=== PATIENT | male | born 1945 | race Caucasian/White ===

== ENCOUNTER → 2020-08-23 13:13 | Outpatient (BNVA) | payer MEDICARE, SELFPAY | PROVIDERS: PCP Physician Assistant Medical; Visit Provider Nurse Practitioner Gerontology | DX: E11.65 Type 2 diabetes mellitus with hyperglycemia (principal); E11.22 Type 2 diabetes mellitus with diabetic chronic kidney disease; I13.2 Hypertensive heart and chronic kidney disease with heart failure and with stage 5 chronic kidney disease, or end stage renal disease; N18.6 End stage renal disease; I50.9 Heart failure, unspecified; Z99.2 Dependence on renal dialysis; E78.5 Hyperlipidemia, unspecified; Z79.4 Long term (current) use of insulin | CPT/HCPCS: 82947; 99214 ==

== ENCOUNTER 2020-08-30 09:51 | Outpatient (REF) | payer MEDICARE, OTHER, SELFPAY ==
[2020-08-30 11:36] LABS: Cholesterol 98 mg/dL; HDL Cholesterol 47 mg/dL; LDL Cholesterol Calculated 38 mg/dl; Triglycerides 66 mg/dL
[2020-08-31 16:47] LABS: LDL Cholesterol Direct 31 mg/dL (<100)
[2020-09-04 19:46] LABS: Fructosamine 305 umol/L (205-285)
== END 2020-08-30 09:52 | disposition home or self-care (01) ==
LOC: HO.LAB 09:51
PROVIDERS: PCP Physician Assistant Medical; Visit Provider Nurse Practitioner Gerontology
DX: E11.65 Type 2 diabetes mellitus with hyperglycemia (principal)
CPT/HCPCS: 80061; 82985; 83721

== ENCOUNTER → 2020-10-11 12:27 | Outpatient (BNVA) | payer MEDICARE, SELFPAY | PROVIDERS: PCP Physician Assistant Medical; Referring Provider Physician Assistant Medical; Visit Provider Internal Medicine | DX: I25.10 Atherosclerotic heart disease of native coronary artery without angina pectoris (principal); I50.32 Chronic diastolic (congestive) heart failure; I13.2 Hypertensive heart and chronic kidney disease with heart failure and with stage 5 chronic kidney disease, or end stage renal disease; E11.22 Type 2 diabetes mellitus with diabetic chronic kidney disease; N18.6 End stage renal disease; Z99.2 Dependence on renal dialysis | CPT/HCPCS: 99212 ==

== ENCOUNTER 2021-02-23 09:10 | Outpatient (REF) | payer MEDICARE, SELFPAY ==
--- NOTE | ~2021-02-23 | XR_ITS ---
EXAMINATION: BILATERAL HAND X-RAY CLINICAL INFORMATION: Pain COMPARISON: None TECHNIQUE: 3 views of both hands FINDINGS: Left: There are flexion contractures of the fingers, particularly the fifth finger. Bone alignment is otherwise normal. No fracture or dislocation is seen. There is mild arthritis at the first FDC joint. Joint spaces are otherwise normal. There is soft tissue arterial calcification. Right: There are flexion contractures of the fingers, particularly the fifth finger. Bone alignment is otherwise normal. No fracture or dislocation is seen. There is mild arthritis at the first FDC joint. Joint spaces are otherwise normal. There is soft tissue arterial calcification. XR/XR hand LT min 3V IMPRESSION: Flexion contractures of the fingers particularly the bilateral fifth finger. Mild arthritis at the first FDC joints. Soft tissue arterial calcification.
--- NOTE | ~2021-02-23 | XR_ITS ---
EXAMINATION: BILATERAL HAND X-RAY CLINICAL INFORMATION: Pain COMPARISON: None TECHNIQUE: 3 views of both hands FINDINGS: Left: There are flexion contractures of the fingers, particularly the fifth finger. Bone alignment is otherwise normal. No fracture or dislocation is seen. There is mild arthritis at the first PRISON joint. Joint spaces are otherwise normal. There is soft tissue arterial calcification. Right: There are flexion contractures of the fingers, particularly the fifth finger. Bone alignment is otherwise normal. No fracture or dislocation is seen. There is mild arthritis at the first PRISON joint. Joint spaces are otherwise normal. There is soft tissue arterial calcification. XR/XR hand RT min 3V IMPRESSION: Flexion contractures of the fingers particularly the bilateral fifth finger. Mild arthritis at the first PRISON joints. Soft tissue arterial calcification.
== END 2021-02-23 09:11 | disposition home or self-care (01) ==
LOC: HO.HOSX 09:10
PROVIDERS: PCP Physician Assistant Medical; Visit Provider Nurse Practitioner Gerontology
DX: M79.641 Pain in right hand (principal); M79.642 Pain in left hand; M72.0 Palmar fascial fibromatosis [Dupuytren]; G56.23 Lesion of ulnar nerve, bilateral upper limbs; I12.0 Hypertensive chronic kidney disease with stage 5 chronic kidney disease or end stage renal disease; E11.65 Type 2 diabetes mellitus with hyperglycemia; E11.22 Type 2 diabetes mellitus with diabetic chronic kidney disease; N18.6 End stage renal disease; E78.5 Hyperlipidemia, unspecified; Z99.2 Dependence on renal dialysis; Z79.4 Long term (current) use of insulin
CPT/HCPCS: 73130; 82947; 99202; 99212

== ENCOUNTER → 2021-03-18 09:09 | Day surgery (SDC) | payer OTHER, SELFPAY ==
--- NOTE | 2021-03-17 10:02 | P.CONAN_ITS ---
HPI - Anesthesia Eval Consult details Narrative: 75yo M for Right Partial Dupuytrens Contracture Release Fascietomy, Ring finger ESRD with HD PMFSH Active Problems Active Problems: All Active Problems (Updated 02/23/21 @ 16:17 by Jenae Hanson MD) Dupuytren's contracture of right hand (Acute) Dupuytren's contracture of left hand (Acute) Cubital tunnel syndrome on left (Acute) Cubital tunnel syndrome on right (Acute) Heart block (Acute) Type 2 diabetes mellitus with unspecified complications (Acute) Chronic heart failure with preserved ejection fraction (Acute) Atherosclerotic cardiovascular disease (Acute) Type 2 diabetes mellitus with hyperglycemia (Acute) Type 2 diabetes mellitus with chronic kidney disease (Acute) Dependence on renal dialysis (Acute) End stage renal disease (Acute) Essential hypertension (Acute) Hyperlipidemia LDL goal <70 (Acute) Past Medical History Medical History Anemia Atherosclerotic cardiovascular disease CAD (coronary artery disease) CHF (congestive heart failure) Chronic heart failure with preserved ejection fraction Colonic polyp Dependence on renal dialysis Depression End stage renal disease Essential hypertension GERD (gastroesophageal reflux disease) Heart block Hyperlipidemia LDL goal <70 IBS (irritable bowel syndrome) Legally blind FARIDA (obstructive sleep apnea) PTSD (post-traumatic stress disorder) PVD (peripheral vascular disease) Seizures Type 2 diabetes mellitus with chronic kidney disease Type 2 diabetes mellitus with hyperglycemia Type 2 diabetes mellitus with unspecified complications Family History Family History Father No problems noted. Mother No problems noted. Brother CVD (cardiovascular disease) Paternal Aunt Diabetes Maternal Uncle Diabetes Surgical History Surgical History History of cardiac catheterization (~09/2019) History of permanent cardiac pacemaker placement (~03/2020) Social History Social History (Updated 08/23/20 @ 14:03 by SANDEEP Jarquin) Household Members: None Smoking Status: Former smoker Meds Allergies Allergy/AdvReac Type Severity Reaction Status Date / Time No Known Allergies Allergy Unknown UNKNOWN Verified 02/23/21 09:40 [NO KNOWN ALLERGIES] dust/pollen and seasonal Allergy Unknown unknown Uncoded 10/11/20 12:47 aller Home Medications Medication Instructions Recorded Confirmed Last Taken Type aripiprazole 2 mg tablet 2 mg PO tab 10/06/20 02/23/21 Unknown History atorvastatin 40 mg tablet 40 mg PO tab 10/06/20 02/23/21 Unknown History sevelamer HCl 800 mg tablet 800 mg PO TID 10/06/20 02/23/21 Unknown History aspirin 81 mg tablet,delayed 81 mg PO DAILY 10/11/20 02/23/21 Unknown History release cholecalciferol (vitamin D3) 50 0.25 mcg PO DAILY cap 02/23/21 02/23/21 Unknown History mcg (2,000 unit) capsule cyanocobalamin (vitamin B-12) 500 500 mcg PO DAILY 02/23/21 02/23/21 Unknown History mcg tablet insulin glargine 100 unit/mL (3 32 unit SUBCUT QPM ml 02/23/21 02/23/21 Unknown History mL) subcutaneous pen isosorbide mononitrate 30 mg 120 mg PO DAILY tab 02/23/21 02/23/21 Unknown History tablet,extended release 24 hr lovastatin 40 mg tablet 40 mg PO DAILY 02/23/21 02/23/21 Unknown History melatonin 5 mg capsule 5 mg PO cap 02/23/21 02/23/21 Unknown History nifedipine 90 mg tablet,extended 90 mg PO DAILY 02/23/21 02/23/21 Unknown History release 24 hr sertraline 100 mg tablet 100 mg PO DAILY 02/23/21 02/23/21 Unknown History vitamin B complex 1 tab PO DAILY 02/23/21 02/23/21 Unknown History Exam Exam Date and Time: March 17, 2021 1002 Narrative Narrative: Cardiac Device Check Details: Date of service 01/07/2021. Battery life 13.8 years. Normal lead parameters. Time in atrial tachycardia/fibrillation -0. Ventricular pacing- 9.2%. Atrial pacing 26.4%. Overall unremarkable. EKG 03/2020 SR with 1st deg AV block ? Inferior Infarct (old) T wave abn No change from previous Echo 2019 LV systolic function low normal, EF 50-55% Normal RV cavity size and systolic function No signif valve or pericardial pathology Cannot r/o R WMA Mild dilation of asc aorta (3.7cm) Assessment and Plan Assessment Anesthesia Assessment: Chart Reviewed
[2021-03-18 09:42] VITALS: BP 118/58; PULSE 73; RESP 18; TEMP 36.1; O2SAT 96
[2021-03-18 09:48] VITALS: BMI 37.3
[2021-03-18 09:49] LABS: Glucose, Whole Blood 160 mg/dL (60-115)
[2021-03-18] MEDS: Lidocaine HCl 1%/Epi 1:100,000 20 ML VIAL 9 ML INFILTRATI ×2 (11:23→11:24)
--- NOTE | 2021-03-18 11:41 | MHC.SHP ---
Pre-Procedural Eval Section B Chief Complaint: palmar fascial fibromatosis Allergies: Allergies Allergy/AdvReac Type Severity Reaction Status Date / Time No Known Allergies Allergy Unknown UNKNOWN Verified 02/23/21 09:40 [NO KNOWN ALLERGIES] dust/pollen and seasonal Allergy Unknown unknown Uncoded 10/11/20 12:47 aller Plan I have reviewed the history and physical and performed a pertinent physical examination on my patient. No changes have occurred unless specified.
--- NOTE | 2021-03-18 11:42 | W.PM.OPN ---
Operative Note Operative Note Date of Service: 03/18/21 Narrative: Operative Note Preop diagnosis: 1. Right hand and ring finger Dupuytren's contracture Postop diagnosis: Same Procedure: 1. Right hand and ring finger partial Dupuytren's fasciectomy in the palm Surgeon: Jenae Hanson MD Anesthesia: local block using 1% lidocaine with epinephrine Findings: Central Dupuytren's cord extending to the ring finger EBL: Less than 5 mL Tourniquet time: None Specimens: Right palmar Dupuytren's cord sent for histopathology Complications: None Disposition: Brought to recovery room in stable condition Plan: Follow-up for 7-10 days for wound check and suture removal, and to check pathology Indications: The patient is 75 years old, with a CC is Dupuytren's contracture of the right ring finger with a prominent central cord. The risks and benefits of operative treatment including but not limited to risk of damage to blood vessels, nerves, tendons, infection, persistent pain, persistent symptoms, recurrence or possible need for additional surgery were discussed with the patient and the patient wishes to proceed with surgery. Procedure: Once consent was obtained a local block was performed in the preop area using a combination of 1% lidocaine with epinephrine. The patient was then brought back to the operating suite and placed on the operative table in supine position. A tourniquet was applied to the proximal aspect of the right upper extremity and the limb was prepped and draped in a standard surgical fashion. Once assured that we had a good block, I made a Leslye is incision over the palmar aspect of the Dupuytren's cord which extends to the ring finger. The incision was made through the skin to the subcutaneous tissues using a 15. Blade. I carefully mobilized the tissues off of a 3.0 cm section of the Dupuytren's cord in the palm. Care was taken to protect the neurovascular structures in the area. The cord was then transected proximally, freed up from the surrounding tissues in a proximal to distal direction and then cut distally at about number digital crease. This segment of cord was then removed and placed on the back table to be sent for histopathology. I then performed a gentle closed manipulation of the ring finger. I was able to bring it to essentially full extension at the MCP joint which brought the ring finger fingertips to about where the middle finger finger tip lies with the hand in extension. He does have an approximately a 30 degree PIP joint contracture. Once satisfied with our partial fasciectomy the wound was copiously irrigated with normal saline and hemostasis was obtained with a brief period of local pressure. The skin edges were reapproximated with some 5.0 nylon suture material and a sterile dressing and volar splint was applied. The patient appears to have tolerated the procedure well and with no complications. All digits were well vascularized at the conclusion of the case.
[2021-03-18 12:49] VITALS: BP 124/59; PULSE 63; RESP 17; TEMP 36.6; O2SAT 95
== END | disposition home or self-care (01) ==
PROVIDERS: PCP Physician Assistant Medical; Visit Provider Orthopaedic Surgery
PROC: (CPT 26045; principal; 2021-03-18 09:00)
DX: M72.0 Palmar fascial fibromatosis [Dupuytren] (principal); E11.65 Type 2 diabetes mellitus with hyperglycemia; E11.22 Type 2 diabetes mellitus with diabetic chronic kidney disease; I25.10 Atherosclerotic heart disease of native coronary artery without angina pectoris; I13.2 Hypertensive heart and chronic kidney disease with heart failure and with stage 5 chronic kidney disease, or end stage renal disease; I50.32 Chronic diastolic (congestive) heart failure; Z95.0 Presence of cardiac pacemaker; N18.6 End stage renal disease; Z99.2 Dependence on renal dialysis; D64.9 Anemia, unspecified; G47.33 Obstructive sleep apnea (adult) (pediatric); Z87.891 Personal history of nicotine dependence; Z79.4 Long term (current) use of insulin; Z79.82 Long term (current) use of aspirin; Z79.899 Other long term (current) drug therapy
CPT/HCPCS: 26123; 82947; 88304

== ENCOUNTER → 2021-03-30 09:10 | Outpatient (BNVA) | payer OTHER, SELFPAY | PROVIDERS: Visit Provider Orthopaedic Surgery | DX: M72.0 Palmar fascial fibromatosis [Dupuytren] (principal) | CPT/HCPCS: 99212 ==

== ENCOUNTER → 2021-04-06 10:26 | Outpatient (BNVA) | payer OTHER, SELFPAY | PROVIDERS: PCP Physician Assistant Medical; Visit Provider Nurse Practitioner Gerontology | DX: E11.22 Type 2 diabetes mellitus with diabetic chronic kidney disease (principal); I12.9 Hypertensive chronic kidney disease with stage 1 through stage 4 chronic kidney disease, or unspecified chronic kidney disease; N18.6 End stage renal disease; E78.5 Hyperlipidemia, unspecified; E66.01 Morbid (severe) obesity due to excess calories; Z68.36 Body mass index [BMI] 36.0-36.9, adult; Z99.2 Dependence on renal dialysis | CPT/HCPCS: 82947; 99212 ==

== ENCOUNTER → 2021-04-11 12:54 | Outpatient (BNVA) | payer OTHER, SELFPAY | PROVIDERS: PCP Physician Assistant Medical; Visit Provider Internal Medicine | DX: Z45.018 Encounter for adjustment and management of other part of cardiac pacemaker (principal); I25.10 Atherosclerotic heart disease of native coronary artery without angina pectoris; I13.2 Hypertensive heart and chronic kidney disease with heart failure and with stage 5 chronic kidney disease, or end stage renal disease; E11.22 Type 2 diabetes mellitus with diabetic chronic kidney disease; N18.6 End stage renal disease; I50.32 Chronic diastolic (congestive) heart failure; Z99.2 Dependence on renal dialysis | CPT/HCPCS: 99212 ==

== ENCOUNTER → 2021-05-30 12:36 | Outpatient (BNVA) | payer OTHER, SELFPAY | PROVIDERS: Visit Provider Orthopaedic Surgery | DX: Z48.89 Encounter for other specified surgical aftercare (principal); M72.0 Palmar fascial fibromatosis [Dupuytren]; G56.23 Lesion of ulnar nerve, bilateral upper limbs | CPT/HCPCS: 99212 ==

== ENCOUNTER → 2021-10-05 13:40 | Outpatient (BNVA) | payer OTHER, SELFPAY | PROVIDERS: PCP Physician Assistant Medical; Visit Provider Nurse Practitioner Gerontology ==

== ENCOUNTER → 2021-11-21 10:50 | Outpatient (BNVA) | payer OTHER, SELFPAY | PROVIDERS: PCP Physician Assistant Medical; Visit Provider Internal Medicine | DX: I13.2 Hypertensive heart and chronic kidney disease with heart failure and with stage 5 chronic kidney disease, or end stage renal disease (principal); E11.22 Type 2 diabetes mellitus with diabetic chronic kidney disease; N18.6 End stage renal disease; I50.32 Chronic diastolic (congestive) heart failure; Z99.2 Dependence on renal dialysis; Z79.4 Long term (current) use of insulin | CPT/HCPCS: 93005; 99212 ==

== ENCOUNTER → 2023-07-07 23:59 | Outpatient (BNV) | payer OTHER, SELFPAY ==
--- NOTE | 2023-07-14 14:10 | A.OFFVIS_ITS ---
Intake Intake Visit Reasons: Remote Device Check- [employer] Allergies No Known Allergies [NO KNOWN ALLERGIES] Allergy (Unknown, Verified 10/05/21 14:10) UNKNOWN dust/pollen and seasonal aller Allergy (Unknown, Uncoded 10/05/21 14:10) unknown [facility] Medical History (Updated 08/18/22 @ 16:31 by PRESTON YadavC) DVT (deep venous thrombosis) Lumbar spondylosis Obesity due to excess calories Heart block Type 2 diabetes mellitus with unspecified complications Chronic heart failure with preserved ejection fraction Atherosclerotic cardiovascular disease PVD (peripheral vascular disease) CAD (coronary artery disease) Legally blind Seizures IBS (irritable bowel syndrome) PTSD (post-traumatic stress disorder) GERD (gastroesophageal reflux disease) Depression Colonic polyp Anemia CHF (congestive heart failure) FARIDA (obstructive sleep apnea) Type 2 diabetes mellitus with hyperglycemia Dependence on renal dialysis End stage renal disease Type 2 diabetes mellitus with chronic kidney disease Essential hypertension Hyperlipidemia LDL goal <70 Surgical History Hx of hand surgery History of permanent cardiac pacemaker placement (~03/2020) History of cardiac catheterization (~09/2019) Family History Father No problems noted. Mother No problems noted. 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 Overall normal device function. [id number] Cardiac Device Interrogation, pacemaker Procedure code (CPT) selection complete Assessment & Plan Assessment & Plan (1) Heart block: Code(s): I45.9 - Conduction disorder, unspecified Coding Level of Care Code Procedure Only Diagnoses Heart block I45.9 CPT Codes Cardiac Device Check - Cardiac Device 12: [id number] Cardiac Device Interrogation, pacemaker ([id number])
== END ==
PROVIDERS: PCP Physician Assistant Medical; Visit Provider Internal Medicine
DX: I45.9 Conduction disorder, unspecified (principal); Z95.0 Presence of cardiac pacemaker
CPT/HCPCS: 93294

== ENCOUNTER → 2023-10-06 23:59 | Outpatient (BNV) | payer OTHER, SELFPAY ==
--- NOTE | 2023-10-15 13:42 | A.OFFVIS_ITS ---
Intake Intake Visit Reasons: Remote Device Check- [employer] Allergies No Known Allergies [NO KNOWN ALLERGIES] Allergy (Unknown, Verified 10/05/21 14:10) UNKNOWN dust/pollen and seasonal aller Allergy (Unknown, Uncoded 10/05/21 14:10) unknown [facility] Medical History (Updated 08/18/22 @ 16:31 by PRESTON YadavC) DVT (deep venous thrombosis) Lumbar spondylosis Obesity due to excess calories Heart block Type 2 diabetes mellitus with unspecified complications Chronic heart failure with preserved ejection fraction Atherosclerotic cardiovascular disease PVD (peripheral vascular disease) CAD (coronary artery disease) Legally blind Seizures IBS (irritable bowel syndrome) PTSD (post-traumatic stress disorder) GERD (gastroesophageal reflux disease) Depression Colonic polyp Anemia CHF (congestive heart failure) FARIDA (obstructive sleep apnea) Type 2 diabetes mellitus with hyperglycemia Dependence on renal dialysis End stage renal disease Type 2 diabetes mellitus with chronic kidney disease Essential hypertension Hyperlipidemia LDL goal <70 Surgical History Hx of hand surgery History of permanent cardiac pacemaker placement (~03/2020) History of cardiac catheterization (~09/2019) Family History Father No problems noted. Mother No problems noted. 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 Overall normal device function. [id number] Cardiac Device Interrogation, pacemaker Procedure code (CPT) selection complete Assessment & Plan Assessment & Plan (1) Heart block: Code(s): I45.9 - Conduction disorder, unspecified Plan x Coding Level of Care Code Procedure Only Diagnoses Heart block I45.9 CPT Codes Cardiac Device Check - Cardiac Device 12: [id number] Cardiac Device Interrogation, pacemaker ([id number])
== END ==
PROVIDERS: PCP Physician Assistant Medical; Visit Provider Internal Medicine
DX: I45.9 Conduction disorder, unspecified (principal); Z95.0 Presence of cardiac pacemaker
CPT/HCPCS: 93294

== ENCOUNTER → 2024-04-04 23:59 | Outpatient (BNV) | payer OTHER, SELFPAY ==
--- NOTE | 2024-04-13 19:00 | MHC.OFFVIS ---
Intake Visit Reasons: Remote Device ck-[employer] Allergies No Known Allergies [NO KNOWN ALLERGIES] Allergy (Unknown, Verified 10/05/21 14:10) UNKNOWN dust/pollen and seasonal aller Allergy (Unknown, Uncoded 10/05/21 14:10) unknown [facility] Medical History (Updated 08/18/22 @ 16:31 by KIKI Yadav) DVT (deep venous thrombosis) Lumbar spondylosis Obesity due to excess calories Heart block Type 2 diabetes mellitus with unspecified complications Chronic heart failure with preserved ejection fraction Atherosclerotic cardiovascular disease PVD (peripheral vascular disease) CAD (coronary artery disease) Legally blind Seizures IBS (irritable bowel syndrome) PTSD (post-traumatic stress disorder) GERD (gastroesophageal reflux disease) Depression Colonic polyp Anemia CHF (congestive heart failure) FARIDA (obstructive sleep apnea) Type 2 diabetes mellitus with hyperglycemia Dependence on renal dialysis End stage renal disease Type 2 diabetes mellitus with chronic kidney disease Essential hypertension Hyperlipidemia LDL goal <70 Surgical History Hx of hand surgery History of permanent cardiac pacemaker placement (~03/2020) History of cardiac catheterization (~09/2019) Family History Father No problems noted. Mother No problems noted. 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 Overall normal device function. [id number] Cardiac Device Interrogation, pacemaker Procedure code (CPT) selection complete Assessment & Plan Assessment & Plan (1) Heart block: Code(s): I45.9 - Conduction disorder, unspecified Category: Medical Plan x Coding Level of Care Code Procedure Only Diagnoses Heart block I45.9 CPT Codes Cardiac Device Check - Cardiac Device 12: [id number] Cardiac Device Interrogation, pacemaker ([id number])
== END ==
PROVIDERS: Visit Provider Internal Medicine
DX: I45.9 Conduction disorder, unspecified (principal); Z95.0 Presence of cardiac pacemaker
CPT/HCPCS: 93294